=== PATIENT | female | born 1945 | race Caucasian/White ===

== ENCOUNTER → 2019-12-22 | Outpatient (REF) | payer MEDICARE, BC | LOC: M LAB REF 15:56 | PROVIDERS: ATTEND Physician Assistant | DX: D23.5 Other benign neoplasm of skin of trunk (principal) | CPT/HCPCS: 11102; 88305; G0463 ==

== ENCOUNTER → 2024-10-16 | Outpatient (REF) | LOC: M CAHLAB 13:22 | DX: Z01.89 Encounter for other specified special examinations (principal) ==